=== PATIENT | female | born 1990 | race Caucasian/White ===

== ENCOUNTER 2017-10-06 15:54 | Emergency (ER) | payer OTHER ==
[~2017-10-06] VITALS: Ht 175.3 cm; Wt 56.2 kg
[~2017-10-06 15:54] MED LIST: CIPR500T2 PO; LORT5TAB PO; RANI150 PO; Z.0.BCPILL PO
[2017-10-06 16:23] VITALS: BP 126/79; PULSE 74; RESP 16; TEMP 98.3; O2SAT 100
[2017-10-06] MEDS ORDERED: AMOX500C PO (18:33)
[2017-10-06 19:20] LABS: BLOOD, URINE SMALL (NEG); GLUCOSE,URINE NEG (NEG); KETONE, URINE NEG (NEG); NITRITE,URINE NEG (NEG)
[2017-10-06 19:28] LABS: AUTOMATED NEUTROPHIL # 3.7 TH/MM3 (1.8-7.7); BASOPHIL # 0.1 TH/MM3 (0-0.2); BASOPHIL % 1.2 % (0.0-2.0); EOSINOPHIL # 0.1 TH/MM3 (0-0.4); EOSINOPHIL % 1.3 % (0.0-4.0); HEMATOCRIT 40.5 % (35.0-46.0); HEMO FLAGS DIFF FINAL; LYMPH % 31.6 % (9.0-44.0); MEAN CORPUSCULAR HEMOGLOBIN 28.5 PG (27.0-34.0); MEAN CORPUSCULAR HGB CONC 33.6 % (32.0-36.0); NEUT % 59.9 % (16.0-70.0); PLATELET COUNT 338 TH/MM3 (150-450); RED BLOOD COUNT 4.76 MIL/MM3 (4.00-5.30); RED CELL DISTRIBUTION WIDTH 11.5 % (11.6-17.2); WHITE BLOOD COUNT 6.3 TH/MM3 (4.0-11.0)
[2017-10-06 19:37] LABS: METHOD OF COLLECTION VOIDED; URINE COLOR YELLOW (YELLW/STRAW)
[2017-10-06 19:38] LABS: COMMENT (UR) CULT NOT INDICATED; CULTURE IF INDICATED CULT NOT INDICATED; RBC, URINE 0-3 /hpf (0-3); SQUAMOUS EPITHELIAL CELL URINE 0-5 /hpf (0-5); WBC, URINE 0-2 /hpf (0-5)
[2017-10-06] MEDS ORDERED: IBUPROFEN 600 MG TAB PO ONE (20:00)
--- NOTE | 2017-10-06 20:26 | PD ---
HPI Chief Complaint: Doctor Naturopathic Problem/Complaint Time Seen by Provider: 18:29 Travel History International Travel<30 days: No Contact w/Intl Traveler<30days: No Traveled to known affect area: No History of Present Illness HPI Patient 27-year-old female presents emergency department for evaluation of vaginal bleeding for the past 2 weeks. Denies any history of abdominal pain cramping possibility for discharge. States she has not followed up with her [employer]YING [employer]ER.she states that she has been passing some water at size clots including grape size clots. She thinks she might of passed some small amount of tissue as well. No fevers. Patient also states that she's been feeling very tired but she thinks that this is due to being overworked. PFSH Past Medical History Autoimmune Disease: No Blood Disorders: No Anxiety: No Depression: No Cancer: No Cardiovascular Problems: No Diminished Hearing: No Endocrine: No Gastrointestinal Disorders: Yes (ABDOMINAL PAIN, SEVERE THIS ADMISSION.) Genitourinary: Yes Immune Disorder: No Musculoskeletal: Yes (FX LEFT WRIST MARCH 2005, FX ELBOW SUMMER 2003) Neurologic: No Psychiatric: No Reproductive: No Respiratory: No Thyroid Disease: Yes (HX of hypo ) Tetanus Vaccination: > 5 Years Influenza Vaccination: No ?: Unknown LMP: 09/25/17 Past Surgical History Appendectomy: Yes Oral Surgery: Yes (T&A @ 4 YO.) Tonsillectomy: Yes Social History Alcohol Use: Yes (SOCIALLY ) Tobacco Use: No Substance Use: No Allergies-Medications (Allergen,Severity, Reaction): Coded Allergies: No Known Allergies (Verified Adverse Reaction, Unknown, 10/06/17) Reported Meds & Prescriptions Reported Meds & Active Scripts Active Reported Amoxicillin 500 Mg Cap 500 Mg PO BID Review of Systems Except as stated in HPI: all other systems reviewed are Neg Physical Exam Narrative GENERAL: Well-developed well-nourished no obvious distress. SKIN: Focused skin assessment warm/dry. HEAD: Atraumatic. Normocephalic. EYES: Pupils equal and round. No scleral icterus. No injection or drainage. ENT: No nasal bleeding or discharge. Mucous membranes pink and moist. NECK: Trachea midline. No JVD. CARDIOVASCULAR: Regular rate and rhythm. No murmur appreciated. RESPIRATORY: No accessory muscle use. Clear to auscultation. Breath sounds equal bilaterally. GASTROINTESTINAL: Abdomen soft, non-tender, nondistended. Hepatic and splenic margins not palpable. Genitourinary: Exam performed with female nurse sharp arm present at all times. Minimal amount of blood in the vaginal vault, cervix closed, no discharge appreciated, no lesion no mass, no bimanual tenderness, no cervical motion tenderness. MUSCULOSKELETAL: No obvious deformities. No clubbing. No cyanosis. No edema. NEUROLOGICAL: Awake and alert. No obvious cranial nerve deficits. Motor grossly within normal limits. Normal speech. PSYCHIATRIC: Appropriate mood and affect; insight and judgment normal. Data Data Last Documented VS Vital Signs Date Time Temp Pulse Resp B/P (MAP) Pulse Ox O2 Delivery O2 Flow Rate FiO2 10/06/17 16:23 98.3 74 16 126/79 (95) 100 Orders Orders Urinalysis - C+S If Indicated (10/06/17 18:45) Ed Urine Pregnancytest Poc (10/06/17 18:45) Complete Blood Count With Diff (10/06/17 19:09) Wet Prep Profile (10/06/17 19:30) Gc And Chlamydia Pcr (10/06/17 19:30) Ibuprofen (Motrin) (10/06/17 20:00) Ed Discharge Order (10/06/17 20:26) Labs Laboratory Tests Test 10/06/17 19:00 10/06/17 19:21 10/06/17 19:43 Urine Collection Type VOIDED Urine Color YELLOW Urine Turbidity CLEAR Urine pH 7.0 Urine Specific [place] 1.012 Urine Protein NEG mg/dL Urine Glucose (UA) NEG mg/dL Urine Ketones NEG mg/dL Urine Occult Blood SMALL Urine Nitrite NEG Urine Bilirubin NEG Urine Leukocyte Esterase NEG Urine RBC 0-3 /hpf Urine WBC 0-2 /hpf Urine Squamous Epithelial Cells 0-5 /hpf Microscopic Urinalysis Comment CULT NOT INDICATED Urine Collection Time 1900 White Blood Count 6.3 TH/MM3 Red Blood Count 4.76 MIL/MM3 Hemoglobin 13.6 GM/DL Hematocrit 40.5 % Mean Corpuscular Volume 85.0 FL Mean Corpuscular Hemoglobin 28.5 PG Mean Corpuscular Hemoglobin Concent 33.6 % Red Cell Distribution Width 11.5 % Platelet Count 338 TH/MM3 Mean Platelet Volume 7.8 FL Neutrophils (%) (Auto) 59.9 % Lymphocytes (%) (Auto) 31.6 % Monocytes (%) (Auto) 6.0 % Eosinophils (%) (Auto) 1.3 % Basophils (%) (Auto) 1.2 % Neutrophils # (Auto) 3.7 TH/MM3 Lymphocytes # (Auto) 2.0 TH/MM3 Monocytes # (Auto) 0.4 TH/MM3 Eosinophils # (Auto) 0.1 TH/MM3 Basophils # (Auto) 0.1 TH/MM3 CBC Comment DIFF FINAL Differential Comment Clue Cells (Wet Prep) NONE SEEN Vaginal Trichomonas (Wet Prep) NONE SEEN Vaginal Yeast (Wet Prep) NONE SEEN Chlamydia trachomatis DNA (PCR) NOT DETECTED Neisseria gonorrhoeae DNA (PCR) NOT DETECTED MDM Medical Decision Making Medical Screen Exam Complete: Yes Emergency Medical Condition: Yes Differential Diagnosis Anemia, dysfunctional uterine bleeding, . Narrative Course Patient roomed in emergency department, appears well in no distress, no anemia on blood testing comprehensive test negative. Vaginal exam is reassuring. Discussed with her need follow-up with an [employer], discussed return to ED criteria and taking multivitamin home. She stable for discharge. Diagnosis Primary Impression: DUB (dysfunctional uterine bleeding) Jacoby Stover MD Oct 06, 2017 20:26
[2017-10-06 22:12] LABS: CHLAMYDIA PCR NOT DETECTED (NOT DETECT); NEISSERIA PCR NOT DETECTED (NOT DETECT)
== END 2017-10-06 20:38 | disposition home or self-care (01) ==
LOC: PHED 15:54
DX: N93.8 Other specified abnormal uterine and vaginal bleeding (principal); R53.83 Other fatigue; E07.9 Disorder of thyroid, unspecified; Z87.19 Personal history of other diseases of the digestive system; Z87.39 Personal history of other diseases of the musculoskeletal system and connective tissue
CPT/HCPCS: 81001; 84703; 85025; 87210; 87491; 87591; 99283